=== PATIENT | female | born 1945 | race Caucasian/White ===

== ENCOUNTER 2022-10-19 14:15 | Outpatient (CLI) | payer MEDICARE, BC, SELFPAY ==
--- NOTE | 2022-10-19 14:30 | CRLHL7_ITS ---
For Patients: As a result of the Century Cures Act, medical imaging exams and procedure reports are released immediately into your electronic medical record. You may view this report before your referring provider. If you have questions, please contact your health care provider. DXA BONE MINERAL DENSITY STUDY Current height (in): 64.0. Weight (lb): 185.0. Menopause age: 28. Ethnicity: White. 1. Have you had a previous hip or vertebral fracture? No. 2. Have you had any fractures during your adult life which did not result from significant trauma (e.g., auto accident)? No. 3. Did either of your parents have a hip fracture? No. 4. Do you smoke? No. 5. Have you ever taken Glucocorticoids? No. 6. Do you have rheumatoid arthritis? No. 7. Do you have secondary osteoporosis? No. 8. Do you drink 3 or more alcoholic drinks per day? No. 9. Are you being treated for osteoporosis? Yes. 10. Have you ever taken any of the following medications: Actonel, Evista, Fosamax, Miacalcin, Reclast, Boniva, Forteo, HRT (i.e. estrogen/hormone therapy), Protelos, Prolia, Vitamin D, Calcium, other ??? please specify. ANSWER: Yes, Reclast, vitamin D, calcium. 11. Do you have any of the following medical conditions: Anorexia or bulimia, asthma or emphysema, end stage renal disease, hyperparathyroidism, any seizure disorders, cancer, inflammatory bowel diseases, hysterectomy, other ??? please specify. ANSWER: Yes, asthma, hysterectomy. 12. What was your maximum height (inches)? 64. 13. Do you perform weight bearing exercise regularly? No. 14. Do you regularly consume dairy products? Yes. 15. Do you drink caffeinated beverages? Yes. 16. At what age did your period start? 11. 17. Are you premenopausal? No. 18. How many full term pregnancies have you had? 3. 19. Have you ever missed your period for more than 6 months in a row (not including or menopause)? No. TECHNIQUE: Bone mineral density study was performed using the [employer]. FINDINGS: The results of the study expressed as bone mineral density (BMD) are as follows: Lumbar spine L1 to L4: BMD: 0.973 g/cm2. T-score: -0.7. Z-score: 1.9. Neck Left: BMD: 0.680 g/cm2. T-score: -1.5. Z-score: 0.7. Right: BMD: 0.671 g/cm2. T-score: -1.6. Z-score: 0.6. Total Left: BMD: 0.798 g/cm2. T-score: -1.2. Z-score: 0.8. Right: BMD: 0.817 g/cm2. T-score: -1.0. Z-score: 1.0. IMPRESSION: Osteopenia. *Comparison exams done prior to 02/2020 were performed on different unit, [employer]. COMPARISON: Compared with scan of 08/12/2020, the bone mineral density has increased by 4.2 percent at the spine and increased by 2.8 percent at the hip. Compared with scan of 08/30/2018, the bone mineral density has decreased by 5.8 percent at the spine and increased by 8.1 percent at the hip. Dylon Shelton M.D. Diagnostic Radiologist [email or web address] DIANA/herbert / be/Dictated by: Dylon Shelton MD @ 10/20/2022 12:45:00 PM (Electronically Signed)
== END 2022-10-19 14:16 | disposition home or self-care (01) ==
LOC: RAD 14:17
PROVIDERS: PCP Family Medicine; Visit Provider Family Medicine
DX: Z78.0 Asymptomatic menopausal state (principal); M85.89 Other specified disorders of bone density and structure, multiple sites
CPT/HCPCS: 77080

== ENCOUNTER 2022-11-25 10:44 | Outpatient (CLI) | payer MEDICARE, BC, SELFPAY | END 2022-11-25 10:45 | disposition home or self-care (01) | PROVIDERS: PCP Family Medicine; Visit Provider Family Medicine | DX: I10 Essential (primary) hypertension (principal); E78.5 Hyperlipidemia, unspecified | CPT/HCPCS: 80048; 80061 ==

== ENCOUNTER 2023-12-29 13:23 | Outpatient (CLI) | payer MEDICARE, BC, SELFPAY ==
--- OUTSIDE RECORDS SUMMARY | 2023-12-29 13:25 | XMS_ITS | Clinical Summary ---
Author Name Unknown Organization [place] Address [address] [place] [id number] Care Team Providers Care Tower Equipment Installer Name Role Phone No Ref-Primary, Physician Primary Care Provider Social History Tobacco Use Types Packs/Day Years Used Date Smoking Tobacco: Never Assessed Adolescent Education Answer Date Record ed Getting School Help Needed Not on file 06/05 Sex and Gender Information Value Date Recorded Sex Assigned at Not on file Gender Identity Not on file Sexual Orientation Not on file Plan of Treatment Health Maintenance Due Date Last Done Comments ADVANCE CARE PLANNING 1945 ANNUAL REVIEW OF HM ORDERS 1945 DEXA 1945 GLUCOSE 1944 HEPATITIS C SCREENING 01/30/1962 LIPID 1984 RSV VACCINE ( & 60+) (1 - 1-dose 60+ series) 2004 ZOSTER IMMUNIZATION (2 of 3) 03/27/2008 2008 FALL RISK ASSESSMENT 01/30/2009 MEDICARE ANNUAL WELLNESS VISIT 01/30/2009 COVID-19 Vaccine (2022- season) 2023 07/19/2022, 06/25/2021, 11/21/2020, Additional history exists INFLUENZA VACCINE (#1) 2023 , 07/06/2021, 06/25/2020, Additional history exists PHQ-2 (once per calendar year) 2023 DTAP/TDAP/TD IMMUNIZATION (3 - Td or Tdap) 11/25/2032 11/25/2022, 05/13/2011, 09/27/2000 Pneumococcal Vaccine: 65+ Years Completed 08/27/2014, 03/19/2009, 09/11/2008 HPV IMMUNIZATION Aged Out No longer e ligible based on patient's age to complete this topic IPV IMMUNIZATION Aged Out No longer e ligible based on patient's age to complete this topic MENINGITIS IMMUNIZATION Aged Out No l onger eligible based on patient's age to complete this topic RSV MONOCLONAL ANTIBODY Aged Out No l onger eligible based on patient's age to complete this topic Care Teams Tower Equipment Installer Relationship Specialty Start Date End Date No Ref-Primary, Physician PCP - General 06/22/23
--- OUTSIDE RECORDS SUMMARY | 2023-12-29 13:25 | XMS_ITS | Clinical Summary ---
Author Name Unknown Organization [facility] Address [place], [place] [address] Care Team Providers Care Under Seal Operator Name Role Phone Dylon Willingham MD Primary Care Provider + Allergies Active Allergy Reactions Criticality Noted Date Comments Naproxen Nausea Only 02/15/2006 Propoxyphene Nausea Only 01/11/2007 Oxycodone-Acetaminophen Nausea And Vomiting 02/2008 Medications Medication Sig Dispensed Refills Start Date End Date Status CENTRUM SILVER TAB daily 0 02/15/2006 Active ASPIRIN 325 MG TAB, DELAYED RELEASE Take one pill by mouth once daily for heart 0 07/28/2006 Active CALCIUM 600 + D 600 MG-125 UNIT TAB two tablets by mouth once daily for bones 0 01/11/2007 Active EVISTA 60 MG TABIndications:Disorde r of bone and cartilage, unspecified take 1 tablet (60mg) by oral route once daily for bone density 90 3 2008 Active DOCOSAHEXANOIC ACID/EPA (FISH OIL ORAL) Take by mouth. Active medication order composer Patient reports that she is now on a daily water pill for her blood pressure./ Active MOXIFLOXACIN 0.5% INTRACAMERAL INJECTION (LYN AMB MIX) Use as directed for procedure. Refrigerate. Expires: 0.2 mL 05/20/2020 Active Active Problems Problem Noted Date Diagnosed Date Unspecified essential hypertension Overview: Diag in 2004. No known coronary artery disease or peripheral vascular disease. Disorder of bone and cartilage, unspecified Overview: On Evista only BMD T-SCORE Z-SCORE 2004 - on evista only. Fosamax started in 2005 for about 2 years LUMBAR SPINE (L1 TO L4) 1.073 G/CM2 -0.9 -0.3 RIGHT HIP (TOTAL HIP) 0.812 G/CM2 -1.6 -1.2 LEFT HIP (TOTAL HIP) 0.805 G/CM2 -1.7 -1.2 2006 - on evista and Fosamax. Fosamax stopped in 10/19 Lumbar Spine (L1 to L4) 1.132 g/cm2 -0.4 +0.4 Right Hip (Femoral neck) 0.815 g/cm2 -1.9 -0.8 Left Hip (Femoral neck) 0.762 g/cm2 -2.3 -1.2 Routine general medical exam ination at a health care facility Overview: dexa: 2004,12/01/06 colon: 12/10, due in 2010 physical: 01/11/07 Immunization History Herpes-zoster Vaccine 2008 Influenza, Inactivated (Age >=3 years) 07/28/2006 08/13/2007 Td (Age >=7 Years) 09/27/2000 Personal history of malignant neoplasm of breast Overview: Oct 1994, Right lumpectomy with radiation. No positive lymph nodes out of 14 high and 23 mid and lower nodes. Estorgen receptor negative. Path showed infiltrating grade for lobular carcinoma 1.0 by 0.[address] Ramirez. Postop complication of lymphedema. Will use a lymphedema sleeve periodically. Resolved Problems Problem Noted Date Diagnosed Date Resolved Date Closed Colles' fracture 11/15/200701/10 Overview: left wrist. 11/14/2007. Secondary to slipping on ice. Open reduction, internal fixation 11/16/2007. Immunizations Name Administration Dates Next Due Influenza, IIV3 (Age >=3 years) 08/13/2007,07/28 Td (Age >=7 Years) 09/27/2000 Zoster (Zostavax-ZVL, live) 2008 Family History Medical History Relation Name Comments Good Health Daughter Kaya Hs 4 children Other Father age 59 fro m leukemia Cancer-breast Maternal Aunt Cancer-colon Maternal Uncle Cancer-ovarian Mother 80 yrs old Other Mother from Ovari an cancer age 85 Cancer-breast Sister older age 29 Good Health Son 1 Roby Good Health Son 2 Jose Cancer No Family History Cancer-prostate No Family History Relation Name Status Comments Daughter Kaya Alive Father (Age age 59 ) leukemia Maternal Aunt Maternal Uncle Mother (Age 85 years) from Ovarian cancer Sister older (Age age 29 years) from breast cancer Son 1 Roby Alive Son 2 Jose Alive Social History Tobacco Use Types Packs/Day Years Used Date Smoking Tobacco: Former Cigarettes 0.5 2 0 09/11/1961 - 09/11/1963 Alcohol Use Standard Drinks/Week Comments Yes 1.7 (1 standard drink = 0.6 oz p ure alcohol) Sex and Gender Information Value Date Recorded Sex Assigned at Not on file Gender Identity Not on file Sexual Orientation Not on file Obstetrics History Para Term AB IAB SAB Ectopic Multiple Livin g Live Births 3 3 Date Outcome GA Total Labor Labor/2nd/3rd Weight Sex Delivery Anes PTL Halley A1 A5 Name Cl in Last Filed Vital Signs Vital Sign Reading Time Taken Comments Blood Pressure 114/79 07/31/2014 2:45 PM ADVERTISING TEACHER Pulse 69 07/31/2014 2:45 PM ADVERTISING TEACHER Temperature 35.9 ??C (96.7 ??F) 2008 9:25 AM CD T Respiratory Rate 16 07/31/2014 2:45 PM ADVERTISING TEACHER Oxygen Saturation 99% 07/31/2014 2:45 PM ADVERTISING TEACHER Inhaled Oxygen Concentration - - Weight 68.5 kg (151 lb) 07/31/2014 2:32 PM ADVERTISING TEACHER Height 163.8 cm (5' 4.49) 07/31/2014 2:32 PM CS T Body Mass Index 25.53 07/31/2014 2:32 PM ADVERTISING TEACHER Plan of Treatment Health Maintenance Due Date Last Done Comments Tdap 01/30/1955 Depression screening for age 12+ 1956 BMI (ht and wt on same day) for age 18+ 01/30/1962 Hepatitis C screening for ag e 18-79 01/30/1962 Zoster (shingles) series for age 50+ (2 of 3) 03/27/2008 2008 DEXA/DXA scan for age 65+ 01/30/2009 12/01/2006 Pneumococcal series for age 65+ (1 of 1 - PCV) 01/30/2009 Tetanus booster 09/27/2010 09/27/2000 COVID-19 vaccine series (2022-24 season) 2023 07/19/2022, 06/25/2021, 11/21/2020, Additional history exists Influenza for age 65+ 05/12/2024 08/13/2007, 006 Procedures Procedure Name Priority Date/Time Associated Diagnosis Comments XR DXA BONE DENSITY 2 SITES AXIAL Routine 12/01/2006 9:14 AM CDT Hx Of Malignant Neoplasm Of Breast from Last 3 Months or Most Recently Relevant to Health Maintenance Results * XR DEXA BONE DENSITY 2 SITES (12/01/2006 9:14 AM CDT) Anatomical Region Laterality Modality Spine, HIPS, HIPL, HIPR Bone Den sitometry 12/01/2006 9:14 AM CDT Impressions 12/02/2006 11:00 AM CDT ?? This patient's T-score meets the World Health Organization (WHO) criteria for low bone density at one or more measured sites (T-score between less than -1.0 and greater than -2.5). ?? The risk of osteoporotic fracture increases approximately two-fold for each 1.0 SD decrease in T-score. COMPARISON: ??Comparison with previous study dated 11/29/04 shows: There was a statistically significant increase in the bone mineral density in the spine. ??There was no statistically significant change in the bone mineral density in the left hip. ??There was a statistically significant increase in the bone mineral density in the right hip. ?? Statistical significance is determined by the least significant change (LSC) for the scanner and operators at this facility. Comparison with baseline study dated 09/25/02 shows: There was no statistically significant change in the bone mineral density in the spine. ??There was no statistically significant change in the bone mineral density in the left hip. ??There was a statistically significant increase in the bone mineral density in the right hip. ?? Statistical significance is determined by the least significant change (LSC) for the scanner and operators at this facility. Please note: ?? Advancing age is an independent risk factor from low bone mineral density for fragility fracture. In the hip the lowest significant T-score of the total hip or femoral neck is used. For comparison with previous studies L1 to L4 and the total hip are used because larger areas give better precision. If the BMD has increased or is stable compared to previous studies, the patient is responding satisfactorily according to the International Society for Clinical Densitometry (ISCD). General recommendations for follow-up studies for patients with abnormal bone mineral density: ??Typically one year after initiation or change in therapy is appropriate, with longer intervals once therapeutic effect is established. ??In conditions associated with rapid bone loss, such as glucocorticoid therapy, testing more frequently is appropriate. DXA scans are compared to prior studies for a patient only when the two (or more) studies were performed on the same scanner. ??It is not possible to compare data generated on one scanner to data from another because there are not standards in DXA equipment as there are in mammography and other areas of radiology. ??This applies even if the two scanners are made by the same institutional research coordinator. Dear Medical Provider: We have made a few changes in the way we read and report the bone density studies. ??This is in response to the International Society for Clinical Densitometry (ISCD) having updated their official positions. The changes include: We will no longer use the greater trochanter for diagnosis, but only the total hip or femoral neck for hip regions of interest. The term ? osteopenia? is still used but ? low bone density? is preferred and will be the term we use in our reports. ??As before, people with low bone mass or density are not necessarily at high fracture risk. In females prior to menopause and in males younger than age 50 Z-scores, and not T-scores, are preferred. ??A Z-score of -2.0 or lower is defined as ? below the expected range for age.? ??A Z-score above -2.0 is ? within the expected range for age.? ??There was not as much guidance in this previously, and we had used a Z-score of -1.0 as ? unexpectedly low for age.? DEXA is now DXA The comparison to prior studies has not changed, but can be confusing. ?? We have determined the least significant change (LSC) for our facility. ?? This is done with the scanner and operators. ??This simply shows the variability of the test at our facility, so a number smaller than the LSC is not considered a real change. ??We report this as ? a statistically significant increase,? ? a statistically significant decrease,? or ? no statistically significant change.? ??This does not relate to clinical significance. ??Whether a change in bone density should warrant a change in therapy involves multiple factors. Narrative 12/02/2006 11:00 AM CDT DXA BONE MINERAL DENSITY ??12/01/06 CLINICAL HISTORY: ??This is a 61-year-old female patient. RISK FACTORS FOR LOW BONE MINERAL DENSITY: ??The patient has estrogen deficiency. ??The patient has a history of breast CA. ??The patient has a history of low bone density based on a prior BMD study. ??The patient is currently taking or has taken the following medications in the last year: Medications for osteoporosis. TECHNIQUE: ??The patient was scanned on a [employer] scanner, fast array scan mode. ??The study was technically adequate. ??The following sites were used for analysis: ??PA lumbar spine: ??L1 to L4, Right hip: ?? Femoral neck, Left hip: ??Femoral neck. FINDINGS: BMD T-Score Z-Score Lumbar Spine (L1 to L4) 1.132 g/cm2 -0.4 +0.4 Right Hip (Femoral neck) 0.815 g/cm2 -1.9 -0.8 Left Hip (Femoral neck) 0.762 g/cm2 -2.3 -1.2 Procedure Note Leda Gaitan MD - 12/04/2006 DXA BONE MINERAL DENSITY 12/01/06 CLINICAL HISTORY: This is a 61-year-old female patient. RISK FACTORS FOR LOW BONE MINERAL DENSITY: The patient has estrogendeficiency. The patient has a history of breast CA. The patient has ahistory of low bone density based on a prior BMD study. The patient iscurrently taking or has taken the following medications in the last year:Medications for osteoporosis. TECHNIQUE: The patient was scanned on a [employer] scanner, fastarray scan mode. The study was technically adequate. The following siteswere used for analysis: PA lumbar spine: L1 to L4, Right hip: Femoralneck, Left hip: Femoral neck. FINDINGS: BMD T-Score Z-Score Lumbar Spine (L1 to L4) 1.132 g/cm2 -0.4 +0.4 Right Hip (Femoral neck) 0.815 g/cm2 -1.9 -0.8 Left Hip (Femoral neck) 0.762 g/cm2 -2.3 -1.2 IMPRESSION: This patient's T-score meets the World Health Organization (WHO) criteriafor low bone density at one or more measured sites (T-score between lessthan -1.0 and greater than -2.5). The risk of osteoporotic fractureincreases approximately two-fold for each 1.0 SD decrease in T-score. COMPARISON: Comparison with previous study dated 11/29/04 shows: There was a statistically significant increase in the bone mineral densityin the spine. There was no statistically significant change in the bonemineral density in the left hip. There was a statistically significantincrease in the bone mineral density in the right hip. Statistical significance is determined by the least significant change(LSC) for the scanner and operators at this facility. Comparison with baseline study dated 09/25/02 shows: There was no statistically significant change in the bone mineral densityin the spine. There was no statistically significant change in the bonemineral density in the left hip. There was a statistically significantincrease in the bone mineral density in the right hip. Statistical significance is determined by the least significant change(LSC) for the scanner and operators at this facility. Please note: Advancing age is an independent risk factor from low bone mineral densityfor fragility fracture. In the hip the lowest significant T-score of the total hip or femoral neckis used. For comparison with previous studies L1 to L4 and the total hip are usedbecause larger areas give better precision. If the BMD has increased or is stable compared to previous studies, thepatient is responding satisfactorily according to the InternationalSociety for Clinical Densitometry (ISCD). General recommendations for follow-up studies for patients with abnormalbone mineral density: Typically one year after initiation or change intherapy is appropriate, with longer intervals once therapeutic effect isestablished. In conditions associated with rapid bone loss, such asglucocorticoid therapy, testing more frequently is appropriate. DXA scans are compared to prior studies for a patient only when the two(or more) studies were performed on the same scanner. It is not possibleto compare data generated on one scanner to data from another becausethere are not standards in DXA equipment as there are in mammography andother areas of radiology. This applies even if the two scanners are madeby the same institutional research coordinator. Dear Medical Provider: We have made a few changes in the way we read and report the bone densitystudies. This is in response to the International Society for ClinicalDensitometry (ISCD) having updated their official positions. The changes include: We will no longer use the greater trochanter for diagnosis, but only thetotal hip or femoral neck for hip regions of interest. The term ? osteopenia? is still used but ? low bone density? is preferredand will be the term we use in our reports. As before, people with lowbone mass or density are not necessarily at high fracture risk. In females prior to menopause and in males younger than age 50 Z-scores,and not T-scores, are preferred. A Z-score of -2.0 or lower is defined as? below the expected range for age.? A Z-score above -2.0 is ? within theexpected range for age.? There was not as much guidance in thispreviously, and we had used a Z-score of -1.0 as ? unexpectedly low forage.? DEXA is now DXA The comparison to prior studies has not changed, but can be confusing. Wehave determined the least significant change (LSC) for our facility. Thisis done with the scanner and operators. This simply shows the variabilityof the test at our facility, so a number smaller than the LSC is notconsidered a real change. We report this as ? a statistically significantincrease,? ? a statistically significant decrease,? or ? no statisticallysignificant change.? This does not relate to clinical significance.Whether a change in bone density should warrant a change in therapyinvolves multiple factors. Jonathan Ramirez MD DEXA from Last 3 Months or Most Recently Relevant to Health Maintenance Care Teams Under Seal Operator Relationship Specialty Start Date End Date Dylon Willingham MD [address] [place] [address] PCP - General Family Practice 02/15/21
--- OUTSIDE RECORDS SUMMARY | 2023-12-29 13:25 | XMS_ITS | Referral Summary ---
Author Name Unknown Organization [place] Address [address] [place] [id number] Care Team Providers Care Tonguer Name Role Phone No Ref-Primary, Physician Primary Care Provider Social History Tobacco Use Types Packs/Day Years Used Date Smoking Tobacco: Never Assessed Adolescent Education Answer Date Record ed Getting School Help Needed Not on file 06/05 Sex and Gender Information Value Date Recorded Sex Assigned at Not on file Gender Identity Not on file Sexual Orientation Not on file Plan of Treatment Not on file Care Teams Tonguer Relationship Specialty Start Date End Date No Ref-Primary, Physician PCP - General 06/22/23
== END 2023-12-29 13:24 | disposition home or self-care (01) ==
PROVIDERS: PCP Family Medicine; Visit Provider Family Medicine
DX: I10 Essential (primary) hypertension (principal); E78.2 Mixed hyperlipidemia
CPT/HCPCS: 80048; 80061

== ENCOUNTER 2024-11-06 10:56 | Outpatient (CLI) | payer MEDICARE, BC, SELFPAY | END 2024-11-06 10:57 | disposition home or self-care (01) | PROVIDERS: PCP Family Medicine; Visit Provider Family Medicine | DX: E78.2 Mixed hyperlipidemia (principal); I10 Essential (primary) hypertension; M81.0 Age-related osteoporosis without current pathological fracture | CPT/HCPCS: 80048; 80061; 82306; 85025 ==

== ENCOUNTER 2024-11-14 12:44 | Outpatient (CLI) | payer MEDICARE, BC, SELFPAY | END 2024-11-14 12:45 | disposition home or self-care (01) | LOC: RAD 12:45 | PROVIDERS: PCP Family Medicine; Visit Provider Family Medicine | DX: M81.0 Age-related osteoporosis without current pathological fracture (principal); M85.89 Other specified disorders of bone density and structure, multiple sites | CPT/HCPCS: 77080 ==

== ENCOUNTER 2024-12-31 11:20 | Outpatient (CLI) | payer MEDICARE, BC, SELFPAY | END 2024-12-31 11:21 | disposition home or self-care (01) | LOC: KYNREF 11:21 | PROVIDERS: PCP Family Medicine; Visit Provider Nurse Practitioner Family | DX: R05.8 Other specified cough (principal) | CPT/HCPCS: 85025 ==